=== PATIENT | male | born 1945 | race Caucasian/White ===

== ENCOUNTER 2021-05-27 19:16 | Inpatient (IN) | payer OTHER ==
[2021-05-27] MEDS ORDERED: Cefepime 2 GM VIAL ONE (19:54)
[2021-05-27 19:56] LABS: #Basophils 0.1 10x3/uL (0.0-0.2); #Monocytes 1.7 10x3/uL (0.0-1.1); #Neutrophils 15.6 10x3/uL (1.5-8.4); %Basophils 0.4 % (0.0-2.0); %Eosinophils 0.2 % (0.0-6.0); %Lymphocytes 2.8 % (18.0-47.0); %Monocytes 9.2 % (0.0-10.0); %Neutrophils 86.6 % (40.0-75.0); Hemoglobin 11.8 g/dL (13.5-17.5); Mean Corpuscular Hemoglobin 30.7 pg (27.0-33.0); Mean Corpuscular Volume 93.2 fl (81.2-95.1); Mean Platelet Volume 10.7 fl (7.4-10.4); Platelet Count 166 10x3/uL (150-450); RBC Distribution Width 14.6 % (11.5-14.5); Red Blood Cell (RBC) Count 3.84 10x6/uL (4.32-5.72)
[2021-05-27 20:10] LABS: ALT (SGPT) 19 U/L (8-55); AST (SGOT) 22 U/L (5-34); Albumin 3.2 g/dL (3.4-4.8); Alkaline Phosphatase 58 U/L (40-110); Anion Gap 17 mmol/L (10-20); BUN (Urea Nitrogen) 22 mg/dL (8.4-25.7); Bilirubin, Total 2.2 mg/dL (0.2-1.2); CK (CPK) 64 U/L (30-200); Calc. Creatinine Clearance 0 mL/min (70-130); Calcium 7.6 mg/dL (7.8-10.44); Carbon Dioxide 16 mmol/L (23-31); Chloride 106 mmol/L (98-107); Globulin 2.4 g/dL (2.4-3.5); Glucose 144 mg/dL (83-110); Potassium 3.8 mmol/L (3.5-5.1); Protein, Total 5.6 g/dL (5.8-8.1); Sodium 135 mmol/L (136-145)
[2021-05-27 20:20] LABS: Bilirubin Neg (Negative); Blood, Urine Negative (Negative); Clarity Clear (Clear); Glucose, Urine (Dipstick) >=1000 mg/dL (Negative); Ketone, Urine 150 mg/dL (Negative); Leukocyte Negative (Negative); Nitrite Negative (Negative); Protein, Urine (Dipstick) Negative (Neg-Trace); Specific Gravity, Urine 1.015 (1.002-1.036); Urobilinogen Normal mg/dL (Less than 2)
[2021-05-27] MEDS ORDERED: Lidocaine 1% PF 5 ML VIAL ONE (20:45)
[2021-05-27] MEDS ORDERED: [UNRECOGNIZED DRUG - REMARK] FS SCH (22:25)
[2021-05-27] MEDS ORDERED: Senokot S 8.6-50 MG TAB PO PRN (22:26)
[2021-05-27] MEDS ORDERED: Ondansetron PF 4 MG/2 ML Vial IVP PRN (22:26)
[2021-05-27] MEDS ORDERED: Ondansetron ODT 4 MG TAB PO PRN (22:26)
[2021-05-27] MEDS ORDERED: Bisacodyl 5 MG TAB PO PRN (22:26)
[2021-05-27] MEDS ORDERED: Acetaminophen 325 MG TAB PO PRN (22:26)
[2021-05-27] MEDS ORDERED: Dextrose 5% in Water 1,000 ML IV PRN (22:35)
[2021-05-27] MEDS ORDERED: HumaLOG 300 UNITS/3 ML VIAL SC PRN (22:35)
[2021-05-27] MEDS ORDERED: Dextrose 50% Abboject 50 ML SYRINGE SLOW IVP PRN (22:35)
[2021-05-27] MEDS ORDERED: Vancomycin HCl 1 GM in Sodium Chloride 0.9% 250 ML 250 ML IVPB SCH (22:45)
[2021-05-27 22:52] LABS: Magnesium 1.6 mg/dL (1.6-2.6)
[2021-05-27 23:15] VITALS: BMI 32.5
[2021-05-27] MEDS ORDERED: Magnesium Oxide 400 MG TAB PO SCH (23:30)
[2021-05-28 00:08] LABS: SARS-CoV-2 NAA Rapid Test Not Detected (NotDetected)
[2021-05-28] MEDS: Lactated Ringer's 1,000 ML IV SCH ×4 (00:24→21:30)
[2021-05-28] MEDS: Cefepime 2 GM in Sodium Chloride 0.9% 100 ML IVPB SCH ×3 (04:42→20:18)
[2021-05-28 05:35] LABS: #Basophils 0.1 10x3/uL (0.0-0.2); #Monocytes 2.1 10x3/uL (0.0-1.1); #Neutrophils 12.2 10x3/uL (1.5-8.4); %Basophils 0.3 % (0.0-2.0); %Eosinophils 0.1 % (0.0-6.0); %Lymphocytes 4.3 % (18.0-47.0); %Monocytes 13.6 % (0.0-10.0); Hemoglobin 10.8 g/dL (13.5-17.5); Mean Corpuscular HGB CONC 33.4 g/dL (32.0-36.0); Mean Corpuscular Hemoglobin 30.6 pg (27.0-33.0); Mean Corpuscular Volume 91.5 fl (81.2-95.1); Mean Platelet Volume 10.8 fl (7.4-10.4); Platelet Count 162 10x3/uL (150-450); RBC Distribution Width 14.9 % (11.5-14.5); Red Blood Cell (RBC) Count 3.53 10x6/uL (4.32-5.72); White Blood Cell (WBC) Count 15.1 10x3/uL (3.5-10.5)
[2021-05-28 05:43] LABS: Anion Gap 20 mmol/L (10-20); BUN (Urea Nitrogen) 26 mg/dL (8.4-25.7); Calc. Creatinine Clearance 73 mL/min (70-130); Calcium 8.5 mg/dL (7.8-10.44); Carbon Dioxide 17 mmol/L (23-31); Chloride 105 mmol/L (98-107); Glucose 143 mg/dL (83-110); Potassium 4.3 mmol/L (3.5-5.1); Sodium 138 mmol/L (136-145)
[2021-05-28] MEDS ORDERED: Cefepime 2 GM in Sodium Chloride 0.9% 100 ML IVPB SCH (06:00)
[2021-05-28] MEDS: Enoxaparin Sodium 40 MG/0.4 ML SYRINGE SC SCH (09:38)
[2021-05-28] MEDS: HYDROcodone/Acetaminophen 10/325 mg Tablet PO PRN ×2 (09:38→14:25)
[2021-05-28] MEDS: Lisinopril 20 MG TAB PO SCH (09:39)
[2021-05-28] MEDS: Tamsulosin HCl 0.4 MG CAP PO SCH (09:39)
[2021-05-28] MEDS: Glimepiride 4 MG TAB PO SCH (09:39)
[2021-05-28] MEDS: Empagliflozin 10 MG TAB PO SCH (10:09)
[2021-05-28] MEDS ORDERED: Lidocaine 1% PF 5 ML VIAL FS SCH (14:00)
[2021-05-28] MEDS: VANCOMYCIN 2 GRAM/400 ML BAG 2 GM in Premix Bag 1 BAG IVPB SCH (21:27)
[2021-05-29] MEDS: HYDROcodone/Acetaminophen 10/325 mg Tablet PO PRN ×4 (01:16→21:55)
[2021-05-29] MEDS: Cefepime 2 GM in Sodium Chloride 0.9% 100 ML IVPB SCH ×3 (04:07→20:37)
[2021-05-29 05:16] LABS: #Basophils 0.1 10x3/uL (0.0-0.2); #Eosinphils 0.2 10x3/uL (0.0-0.5); #Neutrophils 7.5 10x3/uL (1.5-8.4); %Basophils 0.5 % (0.0-2.0); %Eosinophils 1.9 % (0.0-6.0); %Lymphocytes 8.7 % (18.0-47.0); %Monocytes 10.5 % (0.0-10.0); Hemoglobin 9.5 g/dL (13.5-17.5); Mean Corpuscular HGB CONC 32.6 g/dL (32.0-36.0); Mean Corpuscular Hemoglobin 30.4 pg (27.0-33.0); Mean Platelet Volume 10.7 fl (7.4-10.4); Platelet Count 158 10x3/uL (150-450); RBC Distribution Width 15.2 % (11.5-14.5); Red Blood Cell (RBC) Count 3.13 10x6/uL (4.32-5.72); White Blood Cell (WBC) Count 9.6 10x3/uL (3.5-10.5)
[2021-05-29 05:21] LABS: Anion Gap 16 mmol/L (10-20); BUN (Urea Nitrogen) 28 mg/dL (8.4-25.7); Calc. Creatinine Clearance 85 mL/min (70-130); Calcium 8.3 mg/dL (7.8-10.44); Carbon Dioxide 20 mmol/L (23-31); Chloride 109 mmol/L (98-107); Glucose 129 mg/dL (83-110); Potassium 4.5 mmol/L (3.5-5.1); Sodium 140 mmol/L (136-145)
[2021-05-29] MEDS: Lactated Ringer's 1,000 ML IV SCH ×3 (05:28→22:57)
[2021-05-29] MEDS: Glimepiride 4 MG TAB PO SCH (08:50)
[2021-05-29] MEDS: Enoxaparin Sodium 40 MG/0.4 ML SYRINGE SC SCH (08:50)
[2021-05-29] MEDS: Tamsulosin HCl 0.4 MG CAP PO SCH (08:51)
[2021-05-29] MEDS: Lisinopril 20 MG TAB PO SCH (08:51)
[2021-05-29] MEDS: Empagliflozin 10 MG TAB PO SCH (08:51)
[2021-05-29 20:19] LABS: Vancomycin, Trough 12.9 ug/mL
[2021-05-29] MEDS: VANCOMYCIN 2 GRAM/400 ML BAG 2 GM in Premix Bag 1 BAG IVPB SCH (21:57)
[2021-05-30] MEDS: Cefepime 2 GM in Sodium Chloride 0.9% 100 ML IVPB SCH ×3 (03:17→20:17)
[2021-05-30 04:50] LABS: #Basophils 0.1 10x3/uL (0.0-0.2); #Eosinphils 0.2 10x3/uL (0.0-0.5); #Monocytes 0.8 10x3/uL (0.0-1.1); #Neutrophils 5.2 10x3/uL (1.5-8.4); %Basophils 0.7 % (0.0-2.0); %Eosinophils 2.7 % (0.0-6.0); %Lymphocytes 10.5 % (18.0-47.0); %Monocytes 11.8 % (0.0-10.0); Hemoglobin 9.8 g/dL (13.5-17.5); Mean Corpuscular HGB CONC 32.3 g/dL (32.0-36.0); Mean Corpuscular Hemoglobin 30.3 pg (27.0-33.0); Mean Corpuscular Volume 93.8 fl (81.2-95.1); Mean Platelet Volume 11.1 fl (7.4-10.4); Platelet Count 165 10x3/uL (150-450); Red Blood Cell (RBC) Count 3.23 10x6/uL (4.32-5.72); White Blood Cell (WBC) Count 7.1 10x3/uL (3.5-10.5)
[2021-05-30 04:52] LABS: Anion Gap 14 mmol/L (10-20); BUN (Urea Nitrogen) 27 mg/dL (8.4-25.7); Calc. Creatinine Clearance 91 mL/min (70-130); Calcium 8.5 mg/dL (7.8-10.44); Carbon Dioxide 19 mmol/L (23-31); Chloride 109 mmol/L (98-107); Glucose 127 mg/dL (83-110); Potassium 4.3 mmol/L (3.5-5.1); Sodium 138 mmol/L (136-145)
[2021-05-30] MEDS: Lactated Ringer's 1,000 ML IV SCH ×3 (05:54→22:48)
[2021-05-30] MEDS: Enoxaparin Sodium 40 MG/0.4 ML SYRINGE SC SCH (08:33)
[2021-05-30] MEDS: Lisinopril 20 MG TAB PO SCH (08:33)
[2021-05-30] MEDS: Tamsulosin HCl 0.4 MG CAP PO SCH (08:33)
[2021-05-30] MEDS: Glimepiride 4 MG TAB PO SCH (08:33)
[2021-05-30] MEDS: HYDROcodone/Acetaminophen 10/325 mg Tablet PO PRN ×3 (08:33→23:54)
[2021-05-30] MEDS: Empagliflozin 10 MG TAB PO SCH (08:33)
[2021-05-30] MEDS: VANCOMYCIN 2 GRAM/400 ML BAG 2 GM in Premix Bag 1 BAG IVPB SCH (21:31)
[2021-05-31 04:49] LABS: #Basophils 0.1 10x3/uL (0.0-0.2); #Eosinphils 0.2 10x3/uL (0.0-0.5); #Monocytes 0.8 10x3/uL (0.0-1.1); #Neutrophils 4.7 10x3/uL (1.5-8.4); %Basophils 0.7 % (0.0-2.0); %Eosinophils 3.1 % (0.0-6.0); %Lymphocytes 14.4 % (18.0-47.0); %Monocytes 11.6 % (0.0-10.0); %Neutrophils 69.6 % (40.0-75.0); Hemoglobin 9.6 g/dL (13.5-17.5); Mean Corpuscular HGB CONC 32.3 g/dL (32.0-36.0); Mean Corpuscular Hemoglobin 29.9 pg (27.0-33.0); Mean Corpuscular Volume 92.5 fl (81.2-95.1); Mean Platelet Volume 10.5 fl (7.4-10.4); Platelet Count 169 10x3/uL (150-450); RBC Distribution Width 14.6 % (11.5-14.5); Red Blood Cell (RBC) Count 3.21 10x6/uL (4.32-5.72); White Blood Cell (WBC) Count 6.7 10x3/uL (3.5-10.5)
[2021-05-31] MEDS: Cefepime 2 GM in Sodium Chloride 0.9% 100 ML IVPB SCH (04:51)
[2021-05-31 05:05] LABS: Anion Gap 15 mmol/L (10-20); BUN (Urea Nitrogen) 24 mg/dL (8.4-25.7); Calc. Creatinine Clearance 93 mL/min (70-130); Calcium 8.5 mg/dL (7.8-10.44); Carbon Dioxide 21 mmol/L (23-31); Chloride 108 mmol/L (98-107); Glucose 116 mg/dL (83-110); Potassium 4.5 mmol/L (3.5-5.1); Sodium 139 mmol/L (136-145)
[2021-05-31] MEDS: Lactated Ringer's 1,000 ML IV SCH (06:15)
[2021-05-31] MEDS: HYDROcodone/Acetaminophen 10/325 mg Tablet PO PRN (06:32)
[2021-05-31 08:21] VITALS: TEMP 97.8
[2021-05-31] MEDS: Enoxaparin Sodium 40 MG/0.4 ML SYRINGE SC SCH (09:17)
[2021-05-31] MEDS: Tamsulosin HCl 0.4 MG CAP PO SCH (09:17)
[2021-05-31] MEDS: Lisinopril 20 MG TAB PO SCH (09:18)
[2021-05-31] MEDS: Glimepiride 4 MG TAB PO SCH (09:18)
[2021-05-31] MEDS: Empagliflozin 10 MG TAB PO SCH (09:18)
[2021-05-31 12:19] VITALS: BP 146/55
== END 2021-05-31 11:35 | disposition home or self-care (01) | DRG 872 ==
LOC: CSHERS 19:16 → CSHTELE 22:48
PROVIDERS: ADMIT Family Medicine; ATTEND Internal Medicine
PROC: 0S9D3ZX Drainage of Left Knee Joint, Percutaneous Approach, Diagnostic (ICD-10-PCS; principal; 2021-05-28)
DX: A41.9 Sepsis, unspecified organism (principal); N39.0 Urinary tract infection, site not specified; I10 Essential (primary) hypertension; Z20.822 Contact with and (suspected) exposure to COVID-19; E11.9 Type 2 diabetes mellitus without complications; Z96.653 Presence of artificial knee joint, bilateral; E11.42 Type 2 diabetes mellitus with diabetic polyneuropathy; N40.1 Benign prostatic hyperplasia with lower urinary tract symptoms; R39.12 Poor urinary stream; E66.9 Obesity, unspecified; Z68.32 Body mass index [BMI] 32.0-32.9, adult
CPT/HCPCS: 20610; 36415; 36416; 71045; 80048; 80053; 80202; 81003; 82550; 83605; 83735; 85025; 87040; 87070; 87077; 87086; 87186; 87205; 87633; 96365; 96367; J0692; J1650; J3370; J3490; J7050; J7120